=== PATIENT | female | born 1945 | race Caucasian/White ===

== ENCOUNTER → 2017-05-07 16:09 | Outpatient (CLI) | payer MEDICARE, OTHER | END | disposition home or self-care (01) | LOC: D.MAMMO 10:00 | DX: C50.911 Malignant neoplasm of unspecified site of right female breast (principal) ==

== ENCOUNTER 2018-05-11 19:00 | Outpatient (CLI) | payer MEDICARE, OTHER | END 2018-05-11 23:59 | disposition home or self-care (01) | LOC: D.MAMMO 19:00 | DX: Z12.31 Encounter for screening mammogram for malignant neoplasm of breast (principal) ==

== ENCOUNTER 2019-05-13 09:00 | Outpatient (CLI) | payer MEDICARE | END 2019-05-13 10:00 | disposition home or self-care (01) | LOC: D.MAMMO 09:00 | PROVIDERS: ATTEND Internal Medicine Hematology & Oncology | DX: C50.919 Malignant neoplasm of unspecified site of unspecified female breast (principal) ==

== ENCOUNTER 2020-05-16 13:00 | Outpatient (CLI) | payer MEDICARE | END 2020-05-16 14:00 | disposition home or self-care (01) | LOC: D.MAMMO 13:00 | PROVIDERS: ATTEND Internal Medicine Hematology & Oncology | DX: C83.14 Mantle cell lymphoma, lymph nodes of axilla and upper limb (principal); Z85.3 Personal history of malignant neoplasm of breast ==